=== PATIENT | female | born 1990 | race African-American/Black ===

== ENCOUNTER 2024-10-28 16:03 | Emergency (ER) | payer SELFPAY ==
[2024-10-28] MEDS ORDERED: IBUPROFEN 600 MG TABLET (FP) PO ONE (16:24)
[2024-10-28] MEDS ORDERED: ACETAMINOPHEN 325 MG TABLET (FP) ONE (16:24)
[2024-10-28] MEDS: IBUPROFEN 600 MG TABLET (FP) PO ONE (16:27)
[2024-10-28] MEDS: ACETAMINOPHEN 325 MG TABLET (FP) PO ONE (16:28)
[2024-10-28 16:31] VITALS: BP 108/65; PULSE 102; RESP 18; TEMP 99; BMI 42.2
== END 2024-10-28 17:18 | disposition home or self-care (01) ==
LOC: JERFT 16:03
DX: S93.402A Sprain of unspecified ligament of left ankle, initial encounter (principal); R00.0 Tachycardia, unspecified; X50.1XXA Overexertion from prolonged static or awkward postures, initial encounter; Y92.480 Sidewalk as the place of occurrence of the external cause
CPT/HCPCS: 73610-TC-LT-FY; 73630-TC-LT; 99283-25